=== PATIENT | female | born 1975 | race Caucasian/White ===

== ENCOUNTER → 2016-03-10 | Outpatient (CLI) | payer BC ==
[~2016-03-10] MED LIST: CETI10TA10 PO; LEVO75TA5 PO
[2016-03-10 17:30] LABS: BASO % 0.5 %; BASO ABS # 0.03 K/uL (0-0.2); COMPLETE YES; EOS % 5.1 %; HEMATOCRIT 36.7 % (37-47); IG% 0.2 %; LYMPH % 30.5 %; LYMPH ABS # 1.86 K/uL (1.2-3.4); MEAN CORPUSCULAR HEMOGLOBIN 29.2 pg (25-34); MEAN CORPUSCULAR HGB CONC 34.3 g/dl (32-36); MEAN PLATELET VOLUME 10.4 fL (7.4-10.4); MONO % 11.8 %; NEUT % 51.9 %; PLATELET COUNT 231 K/uL (130-400); RED BLOOD COUNT 4.32 M/uL (4.2-5.4)
[2016-03-10 18:02] LABS: ALT/SGPT 16 U/L (12-78)
[2016-03-10 18:05] LABS: ALKALINE PHOSPHATASE 44 U/L (45-117); AST/SGOT 15 U/L (15-37)
== END | disposition home or self-care (01) ==
LOC: C.LABPVFM 12:11
PROVIDERS: ATTEND Family Medicine
DX: E03.9 Hypothyroidism, unspecified (principal); M13.0 Polyarthritis, unspecified; Z79.899 Other long term (current) drug therapy

== ENCOUNTER → 2016-07-10 | Outpatient (CLI) | payer BC | END | disposition home or self-care (01) | LOC: C.LABPVFM 10:36 | PROVIDERS: ATTEND Family Medicine | DX: L65.9 Nonscarring hair loss, unspecified (principal) ==

== ENCOUNTER → 2017-03-13 | Outpatient (CLI) | payer OTHER ==
[2017-03-13 12:34] LABS: BASO % 0.7 %; BASO ABS # 0.04 K/uL (0-0.2); EOS ABS # 0.28 K/uL (0-0.5); HEMATOCRIT 38.7 % (37-47); HEMOGLOBIN 12.9 g/dL (12.0-16.0); IG# 0.01 K/uL (0.00-0.02); LYMPH % 33.9 %; LYMPH ABS # 1.89 K/uL (1.2-3.4); MEAN CELL VOLUME 86.8 fL (80-100); MEAN CORPUSCULAR HEMOGLOBIN 28.9 pg (25-34); MEAN CORPUSCULAR HGB CONC 33.3 g/dl (32-36); MEAN PLATELET VOLUME 9.8 fL (7.4-10.4); MONO % 9.7 %; MONO ABS # 0.54 K/uL (0.11-0.59); NEUT % 50.5 %; NEUT ABS # 2.82 K/uL (1.4-6.5); PLATELET COUNT 238 K/uL (130-400); RED CELL DISTRIBUTION WIDTH CV 13.3 % (11.5-14.5); RED CELL DISTRIBUTION WIDTH SD 42.5 fL (36.4-46.3); WHITE BLOOD COUNT 5.58 K/uL (4.8-10.8)
[2017-03-13 13:03] LABS: ALBUMIN 4.1 gm/dl (3.4-5.0); ALT/SGPT 18 U/L (12-78); CREATININE 0.77 mg/dl (0.60-1.20)
[2017-03-13 13:06] LABS: ALKALINE PHOSPHATASE 43 U/L (45-117); AST/SGOT 15 U/L (15-37); TOTAL PROTEIN 7.5 gm/dl (6.4-8.2)
== END | disposition home or self-care (01) ==
LOC: C.RAD1850 11:19
PROVIDERS: ATTEND Internal Medicine Rheumatology
DX: M13.0 Polyarthritis, unspecified (principal); Z79.1 Long term (current) use of non-steroidal anti-inflammatories (NSAID); Z79.899 Other long term (current) drug therapy

== ENCOUNTER → 2017-03-14 | Outpatient (CLI) | payer OTHER ==
--- NOTE | 2017-03-14 10:23 | DIAGNOSTIC IMAGING REPORT ---
R ANKLE MIN 3 VIEWS ROUTINE CLINICAL HISTORY: Polyarthritis. COMPARISON: None FINDINGS: Alignment of the right ankle is anatomic. There is no fracture or osseous lesion. Talar dome is intact. There is minimal posterior calcaneal spurring. No erosions are identified. IMPRESSION: 1. No fracture. 2. No erosions identified. 3. Minimal posterior calcaneal spurring. Electronically signed by: Gilbert Dunn M.D. 03/14/2017 10:22 AM Dictated Date/Time: 03/14/2017 10:21 AM
--- NOTE | 2017-03-14 10:46 | DIAGNOSTIC IMAGING REPORT ---
R HAND MIN 3 VIEWS ROUTINE CLINICAL HISTORY: Polyarthralgia. COMPARISON: Right hand radiographs August 03, 2015. FINDINGS: Alignment of the right hand is anatomic. No fracture or suspicious lesion is present. There is mild osteophytosis of the proximal interphalangeal joint of the third digit. This is unchanged. There is mild osteophytosis of the distal interphalangeal joint of the right second finger. No erosions are identified. IMPRESSION: 1. 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 2. No erosions identified. Electronically signed by: Gilbert Dunn M.D. 03/14/2017 10:45 AM Dictated Date/Time: 03/14/2017 10:44 AM
--- NOTE | 2017-03-14 10:47 | DIAGNOSTIC IMAGING REPORT ---
L HAND MIN 3 VIEWS ROUTINE CLINICAL HISTORY: Polyarthralgia. COMPARISON: Left hand radiographs August 03, 2015. FINDINGS: Alignment of the left hand is anatomic. There is no fracture or suspicious lesion. No erosions are identified. Joint spaces are preserved. Carpal bones are intact. IMPRESSION: 1. Unremarkable left hand radiographs. 2. No erosions identified. Electronically signed by: Gilbert Dunn M.D. 03/14/2017 10:46 AM Dictated Date/Time: 03/14/2017 10:45 AM
== END | disposition home or self-care (01) ==
LOC: C.RAD1850 09:37
PROVIDERS: ATTEND Internal Medicine Rheumatology
DX: M13.0 Polyarthritis, unspecified (principal); Z79.1 Long term (current) use of non-steroidal anti-inflammatories (NSAID); Z79.899 Other long term (current) drug therapy

== ENCOUNTER → 2017-03-25 | Outpatient (CLI) | payer OTHER ==
--- NOTE | 2017-03-25 14:56 | DIAGNOSTIC IMAGING REPORT ---
BONE SCAN WHOLE BODY CLINICAL HISTORY: Joint pain at multiple sites. COMPARISON STUDY: No previous studies for comparison. TECHNIQUE: 24.917 mCi of technetium 99m MDP was injected IV at 11:10 AM on March 25, 2017. 3 hours following injection, whole body imaging was performed in the anterior and posterior projections. FINDINGS: Expected soft tissue and renal uptake is present. Mild uptake within the shoulders is degenerative. No abnormal uptake is identified within the pelvis, hips or spine. No suspicious radiotracer uptake is identified. IMPRESSION: 1. Mild uptake within the shoulders which is degenerative. 2. No suspicious radiotracer uptake. Electronically signed by: Gilbert Dunn M.D. 03/25/2017 2:55 PM Dictated Date/Time: 03/25/2017 2:51 PM
== END | disposition home or self-care (01) ==
LOC: C.NUCL 10:53
PROVIDERS: ATTEND Internal Medicine Rheumatology
DX: Z79.1 Long term (current) use of non-steroidal anti-inflammatories (NSAID) (principal); M19.011 Primary osteoarthritis, right shoulder